=== PATIENT | male | born 1990 | race African-American/Black ===

== ENCOUNTER 2016-07-06 08:13 | Emergency (ER) | payer BC ==
[~2016-07-06] VITALS: Ht 180.3 cm; Wt 74.8 kg
[~2016-07-06 08:13] MED LIST: BENZ100C PO; PROAIR HFA8.5 GM INH
--- NOTE | 2016-07-06 08:44 | PHYS DOC ---
Past Medical History Past Medical History: No Pertinent History Past Surgical History: No Surgical History Alcohol Use: None Drug Use: Marijuana Adult General Chief Complaint Chief Complaint: MULTIPLE COMPLAINTS HPI HPI Patient is a 26 year old male who presents emergency Department today with 4 days of nonproductive cough, fever, chills, body aches. Patient denies any exposure to animal similar symptoms. He denies any history of cardiopulmonary disease. He is a nonsmoker. 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 He states her times a day does have a heavy cough after working in the grain elevator. Patient denies antibiotic use, hospitalization or foreign travel within the past 90 days. Patient reports that his MAXIMUM TEMPERATURE at home was 102.3. He states he been consistently running approximately 101 even when taking acetaminophen. Patient states that he got up to go to work this morning and began experiencing back spasms. As when he decided to come to the emergency department for evaluation. He does not currently have a primary care provider. Review of Systems Review of Systems Constitutional: Denies fever or chills [] Eyes: Denies change in visual acuity, redness, or eye pain [] HENT: Denies nasal congestion or sore throat [] Respiratory: Denies cough or shortness of breath [] Cardiovascular: No additional information not addressed in HPI [] GI: Denies abdominal pain, nausea, vomiting, bloody stools or diarrhea [] : Denies dysuria or hematuria [] Musculoskeletal: Denies back pain or joint pain [] Integument: Denies rash or skin lesions [] Neurologic: Denies headache, focal weakness or sensory changes [] Endocrine: Denies polyuria or polydipsia [] Current Medications Current Medications Current Medications Medications (Trade) Dose Ordered Sig/[facility] Start Time Stop Time Status Last Admin Dose Admin Ketorolac Tromethamine (Toradol Im) 60 mg 1X ONCE 07/06/16 08:45 07/06/16 08:46 DC 07/06/16 08:51 60 MG Allergies Allergies Allergies Coded Allergies Type Severity Reaction Last Updated Verified No Known Drug Allergies 02/23/16 No Physical Exam Physical Exam Constitutional: Well developed, well nourished, no acute distress, non-toxic appearance. Patient's oral temperature is 99.9 degrees. Last antipyretics taken her last night (acetaminophen). HENT: Normocephalic, atraumatic, bilateral external ears normal, oropharynx moist, no oral exudates, scant clear rhinorrhea. Eyes: PERRLA, EOMI, conjunctiva normal, no discharge. [] Neck: Normal range of motion, no tenderness, supple, no stridor. There is no meningismus. There is bilateral anterior and posterior cervical lymphadenopathy. Cardiovascular:Heart rate regular rhythm, no murmur [] Lungs & Thorax: There is no evidence respiratory distress or respiratory fatigue. Patient is not posturing. There is no sensory muscle use. Lungs are clear to auscultation bilaterally. Abdomen: Bowel sounds normal, soft, no tenderness, no masses, no pulsatile masses. [] Skin: Warm, dry, no erythema, no rash. [] Back: Patient's back is normal in appearance. There is no CVA tenderness. There is tenderness to palpation to the bilateral paraspinous soft tissues at the level of T12-L4. There is no palpable defect, deformity or spasm. Extremities: No tenderness, no cyanosis, no clubbing, ROM intact, no edema. [] Neurologic: Alert and oriented X 3, normal motor function, normal sensory function, no focal deficits noted. [] Psychologic: Affect normal, judgement normal, mood normal. [] Current Patient Data Vital Signs Vital Signs Date Time Temp Pulse Resp B/P Pulse Ox O2 Delivery O2 Flow Rate FiO2 07/06/16 08:26 99.9 71 20 143/76 98 Room Air 99.9 Lab Values Laboratory Tests Test 07/06/16 08:27 Influenza Type A Antigen Negative (NEGATIVE) Influenza Type B Antigen Positive (NEGATIVE) EKG EKG [] Radiology/Procedures Radiology/Procedures [facility] [address] [place], [place] [id number] IMAGING REPORT Signed PATIENT: ALYCIA DIAZ ACCOUNT: [id number] : 1990 LOCATION: ER AGE: 26 SEX: M EXAM STATUS: PRE ER ORD. PHYSICIAN: BEV TREVINO REASON: fever and cough for 4 days. works in a grain elevator PROCEDURE: CHEST PA & LATERAL Chest, 2 views, 07/06/2016: History: Headache, chills, fever Comparison is made to a study from 02/23/2016. The heart size and pulmonary vascularity are normal. No pulmonary infiltrates are seen. There is no evidence of pleural fluid. IMPRESSION: No acute cardiopulmonary abnormality is detected. DICTATED and SIGNED BY: SOMMER ALVAREZ MD DATE: 07/06/16 0857 CC: BEV TREVINO; ROME VÁZQUEZ MD; NO PCP ~ ] Course & Med Decision Making Course & Med Decision Making Pertinent Labs and Imaging studies reviewed. (See chart for details) [] Dragon Disclaimer Dragon Disclaimer This electronic medical record was generated, in whole or in part, using a voice recognition dictation system. Departure Departure Impression: Primary Impression: Influenza Disposition: HOME, SELF-CARE Condition: IMPROVED Referrals: NO PCP (PCP) Patient Instructions: Influenza, Adult Additional Instructions: 1. You tested positive for influenza B. Your chest x-ray today shows no evidence of pneumonia or collapsed lung. 2. Take the medication as prescribed. 3. Rest at home today and tomorrow. Drink 8-10, 10 ounce glasses of non- caffeinated beverage a day. 4. Use ibuprofen every 8 hours for the body aches. 5. Follow-up with a primary care doctor within 5-7 days if there is no improvement. Scripts Hydrocodone/Chlorphen Polis (Tussionex Pennkinetic Susp)480 Ml [id number] Ml PO BID COUGH #120 ML Prov:BEV TREVINO 07/06/16 BEV TREVINO Jul 06, 2016 08:44
[2016-07-06] MEDS ORDERED: KETOROLAC TROMETHAMINE 60 MG/2 ML SYRINGE. IM ONE (08:45)
--- NOTE | 2016-07-06 09:01 | RAD ---
Chest, 2 views, 07/06/2016: History: Headache, chills, fever Comparison is made to a study from 02/23/2016. The heart size and pulmonary vascularity are normal. No pulmonary infiltrates are seen. There is no evidence of pleural fluid. IMPRESSION: No acute cardiopulmonary abnormality is detected.
[2016-07-06 09:28] LABS: OBC FLU VALID
[2016-07-06] MEDS ORDERED: HYDR115S2 PO (09:34)
[2016-07-06 09:44] VITALS: BP 117/57
== END 2016-07-06 09:45 | disposition home or self-care (01) ==
LOC: ER 08:13
DX: J11.1 Influenza due to unidentified influenza virus with other respiratory manifestations (principal); F12.10 Cannabis abuse, uncomplicated
CPT/HCPCS: 71020; 87804; 96372; 99285; J1885